=== PATIENT | female | born 1980 | race Caucasian/White ===

== ENCOUNTER → 2016-11-14 | Outpatient (CLI) | payer BC ==
--- NOTE | 2016-11-15 07:51 | MM ---
Reason for exam: screening (asymptomatic). Baseline mammogram. History: Took hormonal contraceptives for 16 years beginning at age 17. Physical Findings: Nurse did not find any significant physical abnormalities on exam. MG Screening Mammo w CAD Bilateral CC and MLO view(s) were taken. There are scattered fibroglandular densities. There is no discrete abnormality. ASSESSMENT: Negative, BI-RAD 1 RECOMMENDATION: Routine screening mammogram of both breasts at age 41.
== END | disposition home or self-care (01) ==
LOC: RADMAMWWP 10:11
PROVIDERS: ATTEND Obstetrics & Gynecology
DX: Z12.31 Encounter for screening mammogram for malignant neoplasm of breast (principal)

== ENCOUNTER → 2017-05-30 | Outpatient (CLI) | payer BC ==
--- NOTE | 2017-05-31 09:31 | US ---
EXAMINATION TYPE: US transvaginal DATE OF EXAM: 05/30/2017 COMPARISON: NONE CLINICAL HISTORY: Left lower quadrant pain R10.32. TECHNIQUE: Transvaginal (TV) Date of LMP: 05/28/2017 EXAM MEASUREMENTS: Uterus: 7.7 x 3.5 x 5.2 cm Endometrial Stripe: 0.45 c 1. Uterus: Anteverted wnl 2. Endometrium: wnl 3. Right Ovary: Obscured by overlying bowel gas 4. Left Ovary: Obscured by overlying bowel gas 5. Bilateral Adnexa: wnl 6. Posterior cul-de-sac: wnl Small Nabothian simple appearing nabothian cyst is an incidentally noted within the cervix. IMPRESSION: 1. Unremarkable endometrium and uterus. 2. Small nabothian cyst within the cervix. 3. Nonvisualization of the ovaries as the aorta obscured by bowel gas.
== END | disposition home or self-care (01) ==
LOC: RADUSMAIN 17:52
PROVIDERS: ATTEND Family Medicine
DX: N88.8 Other specified noninflammatory disorders of cervix uteri (principal); R10.32 Left lower quadrant pain
CPT/HCPCS: 76830

== ENCOUNTER 2018-11-29 14:32 | Observation (INO) | payer BC ==
[2018-11-29] MEDS ORDERED: SODIUM CHLORIDE 0.9% 1,000 ML IV STA (14:54)
--- NOTE | 2018-11-29 15:23 | ED ---
Abdominal Pain HPI - General Chief Complaint: Abdominal Pain Stated Complaint: Abdominal pain Time Seen by Provider: 11/29/18 14:54 Source: patient Mode of arrival: ambulatory Limitations: no limitations - History of Present Illness Initial Comments: 38-year-old female with focal nodular hyperplasia of the liver, eosinophilic esophagitis sanjuanita today for chief complaint of abdominal pain. Patient states that yesterday evening she began experiencing epigastric abdominal pain, she states the pain is since moved to the right lower quadrant. She states it radiates towards the back bilaterally. She states the pain increases with movement, or deep breaths. She denies any chest pain, dyspnea dyspraxia and. She states she has felt nauseous, and experienced dry heaving last night denies any true emesis or hematemesis. Patient states she had diarrhea one time. Denies a melena or hematochezia. She has a fever chills or night sweats. Patient denies any lower pelvic pain, vaginal bleeding, vaginal discharge or pain with sex. She denies stating has had a vasectomy. Pt had previous intraabdominal surgeries including a cholecystectomy, and procedures for embolization of the liver for her focal nodular hyperplasia. Pt denies any flank pain, urgency, frequency, dysuria, hematuria. Remaining ROS (-) , patient denies any numbness or tingling, constipation, headaches or visual changes, or any other complaints. - Related Data Home Medications Medication Instructions Recorded Confirmed Fluticasone Propionate [Flovent 2 puff INHALATION RT-DAILY 11/29/18 11/29/18 Hfa 220 mcg] Multivitamins, Thera [Multivitamin 1 tab PO DAILY 11/29/18 11/29/18 (formulary)] Pantoprazole Sodium [Protonix] 20 mg PO DAILY 11/29/18 11/29/18 busPIRone HCl [Buspar] 10 mg PO BID PRN 11/29/18 11/29/18 Allergies Allergy/AdvReac Type Severity Reaction Status Date / Time venlafaxine HCl Allergy Rapid Verified 11/29/18 15:28 [From Effexor] Heart Rate Review of Systems ROS Statement: Those systems with pertinent positive or pertinent negative responses have been documented in the HPI. ROS Other: All systems not noted in ROS Statement are negative. Past Medical History Past Medical History: No Reported History History of Any Multi-Drug Resistant Organisms: None Reported Past Surgical History: Cholecystectomy Additional Past Surgical History / Comment(s): liver embolism, sinus Past Anesthesia/Blood Transfusion Reactions: Postoperative Nausea & Vomiting ( PONV) Past Psychological History: No Psychological Hx Reported Smoking Status: Never smoker Past Alcohol Use History: None Reported Past Drug Use History: None Reported - Past Family History Father Family Medical History: Neurologic Disorder Additional Family Medical History / Comment(s): Multiple Sclerosis General Exam - General Exam Comments Initial Comments: General: The patient is awake and alert, in no distress, Eye: +3 mm pupils are equal, round and reactive to light, extra-ocular movements are intact. No nystagmus. There is normal conjunctiva bilaterally. No signs of icterus. Ears, nose, mouth and throat: There are moist mucous membranes and no oral lesions. Neck: The neck is supple, there is no tenderness or JVD. Cardiovascular: There is a regular rate and rhythm. No murmur, rub or gallop is appreciated. Respiratory: Lungs are clear to auscultation, respirations are non-labored, breath sounds are equal. No wheezes, stridor, rales, or rhonchi. Gastrointestinal: No noted diaphoresis, jaundice, pallor, protecting postures or squirming. Symmetrical pigmentation of abdomen without signs of inflammation.. Umbilicus mildline, inverted without swelling. No dilated veins. Abdomen contour obese, no noted abdominal distention. No visible masses. No peristalsis, aortic pulsations, or ventral hernia. Bowel sounds audible in all 4 quadrants, unremarkable. No friction rubs or venous hums. No epigastic, hepatic or abdominal bruits. Tenderness to RLQ on deep and light palpation. No lower pelvic pain. (+) McBurneys, (+) Rovsing. (-) Heel jar. Liver edge, not palpable. Spleen edge, right and left kidney not palpable. Superior bladder margin non-tender. No CVA tenderness. Digital rectal exam deferred. Negative karimi turners or cullens sign Musculoskeletal: Normal ROM, no tenderness. Strength 5/5. Sensation intact. Radial pulses equal bilaterally 2+. Neurological: A&O x 3. CN II-XII intact, There are no obvious motor or sensory deficits. Coordination appears grossly intact. Speech is normal. Skin: Skin is warm and dry and no rashes or lesions are noted. Psychiatric: Cooperative, appropriate mood & affect, normal judgment. Limitations: no limitations Course Vital Signs 11/29/18 11/29/18 11/29/18 14:42 16:24 16:38 Temperature 98.8 F 98 F Pulse Rate 91 83 81 Respiratory 18 18 18 Rate Blood Pressure 156/98 160/108 139/73 O2 Sat by Pulse 95 98 98 Oximetry Medical Decision Making - Medical Decision Making Well-appearing 38-year-old female complaining of right lower quadrant pain concerning for appendicitis. CT revealed acute mild appendicitis. This is compatible patient history and physical examination findings. The signs of peritoneal irritation on PE. Surgery was consult is recommended admission for surgery. Patient started on Zosyn, marked nothing by mouth given medications for nausea and pain management. DR Davis accepted admission. Pt transferred to the floor in stable condition after discussing the results of the CT. I discussed the case with attending provider Dr. Jimenez who spoke with admitting providers, agreeable with plan. No further instruction. - Lab Data Result diagrams: 11/29/18 15:16 11/29/18 15:16 Lab Results 11/29/18 11/29/18 11/29/18 Range/Units 15:16 15:16 15:16 WBC 8.5 (3.8-10.6) k/uL RBC 4.92 (3.80-5.40) m/uL Hgb 13.7 (11.4-16.0) gm/dL Hct 40.8 (34.0-46.0) % MCV 82.9 (80.0-100.0) fL MCH 27.8 (25.0-35.0) pg MCHC 33.5 (31.0-37.0) g/dL RDW 14.2 (11.5-15.5) % Plt Count 258 (150-450) k/uL Neutrophils % 68 % Lymphocytes % 23 % Monocytes % 5 % Eosinophils % 3 % Basophils % 1 % Neutrophils # 5.8 (1.3-7.7) k/uL Lymphocytes # 2.0 (1.0-4.8) k/uL Monocytes # 0.4 (0-1.0) k/uL Eosinophils # 0.2 (0-0.7) k/uL Basophils # 0.0 (0-0.2) k/uL Sodium 141 (137-145) mmol/L Potassium 4.2 (3.5-5.1) mmol/L Chloride 105 (98-107) mmol/L Carbon Dioxide 25 (22-30) mmol/L Anion Gap 11 mmol/L BUN 8 (7-17) mg/dL Creatinine 0.70 (0.52-1.04) mg/dL Est GFR (CKD-EPI)AfAm >90 (>60 ml/min/1.73 sqM) Est GFR (CKD-EPI)NonAf >90 (>60 ml/min/1.73 sqM) Glucose 92 (74-99) mg/dL Calcium 9.7 (8.4-10.2) mg/dL Total Bilirubin 0.9 (0.2-1.3) mg/dL AST 31 (14-36) U/L ALT 46 (9-52) U/L Alkaline Phosphatase 67 (38-126) U/L Total Protein 7.7 (6.3-8.2) g/dL Albumin 4.7 (3.5-5.0) g/dL Amylase 46 (30-110) U/L Lipase 69 (23-300) U/L Urine Color Urine Appearance (Clear) Urine pH (5.0-8.0) Ur Specific Premier (1.001-1.035) Urine Protein (Negative) Urine Glucose (UA) (Negative) Urine Ketones (Negative) Urine Blood (Negative) Urine Nitrite (Negative) Urine Bilirubin (Negative) Urine Urobilinogen (<2.0) mg/dL Ur Leukocyte Esterase (Negative) Urine HCG, Qual Not Detected (Not Detectd) 11/29/18 Range/Units 15:16 WBC (3.8-10.6) k/uL RBC (3.80-5.40) m/uL Hgb (11.4-16.0) gm/dL Hct (34.0-46.0) % MCV (80.0-100.0) fL MCH (25.0-35.0) pg MCHC (31.0-37.0) g/dL RDW (11.5-15.5) % Plt Count (150-450) k/uL Neutrophils % % Lymphocytes % % Monocytes % % Eosinophils % % Basophils % % Neutrophils # (1.3-7.7) k/uL Lymphocytes # (1.0-4.8) k/uL Monocytes # (0-1.0) k/uL Eosinophils # (0-0.7) k/uL Basophils # (0-0.2) k/uL Sodium (137-145) mmol/L Potassium (3.5-5.1) mmol/L Chloride (98-107) mmol/L Carbon Dioxide (22-30) mmol/L Anion Gap mmol/L BUN (7-17) mg/dL Creatinine (0.52-1.04) mg/dL Est GFR (CKD-EPI)AfAm (>60 ml/min/1.73 sqM) Est GFR (CKD-EPI)NonAf (>60 ml/min/1.73 sqM) Glucose (74-99) mg/dL Calcium (8.4-10.2) mg/dL Total Bilirubin (0.2-1.3) mg/dL AST (14-36) U/L ALT (9-52) U/L Alkaline Phosphatase (38-126) U/L Total Protein (6.3-8.2) g/dL Albumin (3.5-5.0) g/dL Amylase (30-110) U/L Lipase (23-300) U/L Urine Color Yellow Urine Appearance Clear (Clear) Urine pH 5.5 (5.0-8.0) Ur Specific Premier 1.016 (1.001-1.035) Urine Protein Negative (Negative) Urine Glucose (UA) Negative (Negative) Urine Ketones 1+ H (Negative) Urine Blood Negative (Negative) Urine Nitrite Negative (Negative) Urine Bilirubin Negative (Negative) Urine Urobilinogen <2.0 (<2.0) mg/dL Ur Leukocyte Esterase Negative (Negative) Urine HCG, Qual (Not Detectd) Disposition Clinical Impression: Acute appendicitis Disposition: [facility]MITT[facility] Condition: Stable Is patient prescribed a controlled substance at d/c from ED?: No Time of Disposition: 16:26 Decision to Admit Reason: Admit from EC Decision Date: 11/29/18 Decision Time: 16:26
[2018-11-29 15:30] LABS: Appearance,Urine Clear (Clear); Bilirubin,Urine Negative (Negative); Blood,Urine Negative (Negative); Color,Urine Yellow; Glucose,Urine (UA) Negative (Negative); Ketones,Urine 1+ (Negative); Leukocyte Esterase,Urine Negative (Negative); Nitrite,Urine Negative (Negative); PH, Urine 5.5 (5.0-8.0); Protein,Urine Negative (Negative); Specific Gravity,Urine 1.016 (1.001-1.035); Urobilinogen,Urine <2.0 mg/dL (<2.0)
[2018-11-29 15:33] LABS: Basophils % (A) 1 %; Eosinophils # (A) 0.2 k/uL (0-0.7); Eosinophils % (A) 3 %; HCT 40.8 % (34.0-46.0); HGB 13.7 gm/dL (11.4-16.0); Lymphocytes % (A) 23 %; MCH 27.8 pg (25.0-35.0); MCHC 33.5 g/dL (31.0-37.0); MCV 82.9 fL (80.0-100.0); Monocytes # (A) 0.4 k/uL (0-1.0); Monocytes % (A) 5 %; Neutrophils # (A) 5.8 k/uL (1.3-7.7); Neutrophils % (A) 68 %; Platelet Count 258 k/uL (150-450); RBC 4.92 m/uL (3.80-5.40); RDW 14.2 % (11.5-15.5); WBC 8.5 k/uL (3.8-10.6)
[2018-11-29 15:43] LABS: ALT 46 U/L (9-52); AST 31 U/L (14-36); Albumin 4.7 g/dL (3.5-5.0); Alkaline Phosphatase 67 U/L (38-126); Amylase 46 U/L (30-110); Anion Gap 11 mmol/L; Blood Urea Nitrogen 8 mg/dL (7-17); Calcium 9.7 mg/dL (8.4-10.2); Carbon Dioxide 25 mmol/L (22-30); Chloride 105 mmol/L (98-107); Glucose 92 mg/dL (74-99); Lipase 69 U/L (23-300); Potassium 4.2 mmol/L (3.5-5.1); Sodium 141 mmol/L (137-145); Total Bilirubin 0.9 mg/dL (0.2-1.3); Total Protein 7.7 g/dL (6.3-8.2)
--- NOTE | 2018-11-29 16:16 | CT ---
EXAMINATION TYPE: CT abdomen pelvis w con DATE OF EXAM: 11/29/2018 COMPARISON: 02/08/2016 HISTORY: Right lower quadrant pain with nausea and vomiting. CT DLP: 1068.2 mGycm CONTRAST: CT scan of the abdomen and pelvis is performed without Oral Contrast and with IV Contrast, patient in jected with 100 mL of Isovue 300. FINDINGS: LUNG BASES-: No visible nodule. No infiltrate. LIVER/GB: Cholecystectomy changes noted. Again noted is hypoattenuating lesion within the posterior segment right hepatic lobe medially currently measuring 5.2 x 2.5 cm versus prior measurement of juan roximately 7.8 x 4.5 cm. No new lesions are identified. There is evidence of underlying hepatic steat osis. Biliary tree is of normal caliber. PANCREAS: No inflammation. No distinct mass. SPLEEN: No splenic enlargement. No lesion seen. ADRENALS: No nodule. No thickening. KIDNEYS/BLADDER: No hydronephrosis. No nephrolithiasis. No distinct renal mass. Urinary bladder g rossly unremarkable. BOWEL: There is thickening of the appendix measuring 9.2 mm with mild surrounding periappendiceal inf lammatory change. The findings are felt to reflect mild early acute appendicitis. No evidence of perf oration or abscess. No free air identified. Normal bowel caliber. No inflammation. GENITAL ORGANS: No gross abnormality. LYMPH NODES: No greater than 1cm abdominal or pelvic lymph nodes are appreciated. AORTA: No significant abnormality. OSSEOUS STRUCTURES: No significant abnormality is seen. OTHER: No significant additional abnormality is seen. IMPRESSION: 1. Mild early acute appendicitis. 2. Hepatic lesion which is nonspecific is somewhat smaller in size versus prior examination. Comment: ER staff notified of the aforementioned findings via telephone.
[2018-11-29] MEDS ORDERED: PIPERACILLIN-TAZOBACTAM 3.375 GM in SODIUM CHLORIDE 0.9% 100 ML IVPB STA (16:23)
[2018-11-29] MEDS ORDERED: NALOXONE 0.4 MG/ML 1 ML VIAL IV PRN (16:24)
[2018-11-29] MEDS: ONDANSETRON 4 MG/2 ML VIAL IVP SCH ×2 (17:00→17:27)
[2018-11-29] MEDS: SODIUM CHLORIDE 0.9% 1,000 ML IV SCH ×2 (17:01→21:07)
[2018-11-29] MEDS ORDERED: LACTATED RINGERS 1,000 ML IV ONE (17:05)
--- NOTE | 2018-11-29 17:15 | P.GSHP ---
History of Present Illness H&P Date: 11/29/18 38-year-old female presented to the emergency department with 1 day of abdominal pain. She states that the pain began in her epigastrium and then traveled down to umbilicus and has now settled in her right lower quadrant. She complained of nausea as well. She also complained of decreased appetite. In the emergency department, workup was completed with CT of the abdomen and pelvis. CT of the abdomen is pelvis does show early appendicitis with some inflammatory changes around the appendix. The patient has no additional complaints at this time. She states that her only previous abdominal surgery has been a cholecystectomy. 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 - Review of Systems All systems: negative Past Medical History Past Medical History: No Reported History Additional Past Medical History / Comment(s): FNH History of Any Multi-Drug Resistant Organisms: None Reported Past Surgical History: Cholecystectomy Additional Past Surgical History / Comment(s): liver embolism, sinus Past Anesthesia/Blood Transfusion Reactions: Postoperative Nausea & Vomiting ( PONV) Past Psychological History: No Psychological Hx Reported Smoking Status: Never smoker Past Alcohol Use History: None Reported Past Drug Use History: None Reported - Past Family History Father Family Medical History: Neurologic Disorder Additional Family Medical History / Comment(s): Multiple Sclerosis Medications and Allergies Home Medications Medication Instructions Recorded Confirmed Type Fluticasone Propionate [Flovent 2 puff INHALATION RT-DAILY 11/29/18 11/29/18 History Hfa 220 mcg] Multivitamins, Thera [Multivitamin 1 tab PO DAILY 11/29/18 11/29/18 History (formulary)] Pantoprazole Sodium [Protonix] 20 mg PO DAILY 11/29/18 11/29/18 History busPIRone HCl [Buspar] 10 mg PO BID PRN 11/29/18 11/29/18 History Allergies Allergy/AdvReac Type Severity Reaction Status Date / Time venlafaxine HCl Allergy Rapid Verified 11/29/18 15:28 [From Effexor] Heart Rate Surgical - Exam Osteopathic Statement: *. No significant issues noted on an osteopathic structural exam other than those noted in the History and Physical/Consult. Vital Signs Temp Pulse Resp BP Pulse Ox 98.8 F 91 18 156/98 95 11/29/18 14:42 11/29/18 14:42 11/29/18 14:42 11/29/18 14:42 11/29/18 14:42 - General well nourished, no distress - Eyes PERRL - ENT normal mucosa, no hearing loss - Neck trachea midline - Respiratory normal respiratory effort - Abdomen Soft, tender to palpation in right lower quadrant, nondistended, no rebound, no guarding - Neurologic normal sensation - Psychiatric oriented to time, oriented to person, oriented to place Results - Labs 11/29/18 15:16 11/29/18 15:16 Abnormal Lab Results - Last 24 Hours (Table) 11/29/18 Range/Units 15:16 Urine Ketones 1+ H (Negative) Diabetes panel 11/29/18 Range/Units 15:16 Sodium 141 (137-145) mmol/L Potassium 4.2 (3.5-5.1) mmol/L Chloride 105 (98-107) mmol/L Carbon Dioxide 25 (22-30) mmol/L BUN 8 (7-17) mg/dL Creatinine 0.70 (0.52-1.04) mg/dL Glucose 92 (74-99) mg/dL Calcium 9.7 (8.4-10.2) mg/dL AST 31 (14-36) U/L ALT 46 (9-52) U/L Alkaline Phosphatase 67 (38-126) U/L Total Protein 7.7 (6.3-8.2) g/dL Albumin 4.7 (3.5-5.0) g/dL Calcium panel 11/29/18 Range/Units 15:16 Calcium 9.7 (8.4-10.2) mg/dL Albumin 4.7 (3.5-5.0) g/dL Pituitary panel 11/29/18 Range/Units 15:16 Sodium 141 (137-145) mmol/L Potassium 4.2 (3.5-5.1) mmol/L Chloride 105 (98-107) mmol/L Carbon Dioxide 25 (22-30) mmol/L BUN 8 (7-17) mg/dL Creatinine 0.70 (0.52-1.04) mg/dL Glucose 92 (74-99) mg/dL Calcium 9.7 (8.4-10.2) mg/dL Adrenal panel 11/29/18 Range/Units 15:16 Sodium 141 (137-145) mmol/L Potassium 4.2 (3.5-5.1) mmol/L Chloride 105 (98-107) mmol/L Carbon Dioxide 25 (22-30) mmol/L BUN 8 (7-17) mg/dL Creatinine 0.70 (0.52-1.04) mg/dL Glucose 92 (74-99) mg/dL Calcium 9.7 (8.4-10.2) mg/dL Total Bilirubin 0.9 (0.2-1.3) mg/dL AST 31 (14-36) U/L ALT 46 (9-52) U/L Alkaline Phosphatase 67 (38-126) U/L Total Protein 7.7 (6.3-8.2) g/dL Albumin 4.7 (3.5-5.0) g/dL - Imaging CT scan - abdomen: report reviewed, image reviewed (CT of the abdomen pelvis was reviewed. Inflammatory changes around appendix are noted along with thickening of the appendix.) CT scan - pelvis: report reviewed, image reviewed Assessment and Plan (1) Acute appendicitis Narrative/Plan: 38-year-old female with acute appendicitis - Keep patient nothing by mouth - Begin IV antibiotics - Prepare for operating room for laparoscopic appendectomy Current Visit: Yes Status: Acute Code(s): K35.80 - UNSPECIFIED ACUTE APPENDICITIS SNOMED Code(s): 49621257
[2018-11-29] MEDS ORDERED: FAMOTIDINE 20 MG/2 ML VIAL IVP ONE (17:27)
[2018-11-29] MEDS ORDERED: DEXAMETHASONE SOD PHOS (MDV) 100 MG/10 ML VIAL IVP ONE (17:27)
[2018-11-29] MEDS: HEPARIN SODIUM,PORCINE 5,000 UNIT/ML 1 ML VIAL SQ SCH (17:27)
[2018-11-29] MEDS ORDERED: METOCLOPRAMIDE 5 MG/ML 2 ML VIAL IVP ONE (17:28)
[2018-11-29] MEDS: PIPERACILLIN-TAZOBACTAM 3.375 GM in SODIUM CHLORIDE 0.9% 100 ML IVPB SCH ×2 (17:29→23:40)
[2018-11-29] MEDS ORDERED: BUPIVACAIN-EPI 0.5%-1:200,000 30 ML VIAL SQ ONE ×2 (17:30→17:53)
--- NOTE | 2018-11-29 18:26 | P.OP ---
Date of Procedure: 11/29/18 Preoperative Diagnosis: Acute appendicitis Postoperative Diagnosis: Acute appendicitis Procedure(s) Performed: Laparoscopic appendectomy Anesthesia: SUDARSHAN Surgeon: Deric Davis Pathology: other (Appendix) Condition: stable Disposition: floor Indications for Procedure: 38-year-old female presented to the emergency department with right lower quadrant pain. On workup, she was found to have appendicitis based on CT finding and clinical findings. Secondary to this, plan is for laparoscopic appendectomy. The patient was explained the risks, benefits and alternatives to the procedure and did provide consent prior to attending the operating suite. Operative Findings: Inflamed appendix that was noted to be thickened. Turbid fluid in the pelvis Description of Procedure: The patient was brought into the operating suite and placed in supine position on the operating table. Sedation was provided by anesthesia and the patient underwent endotracheal intubation. The patient was then prepped and draped in regular sterile fashion. A super umbilical incision was made dissection was carried to the fascia the fascia was grasped and incised. The abdomen was then entered and a 12 mm trocar was placed. Pneumoperitoneum was then achieved. 2 additional ports were placed. 5 mm ports were placed in the suprapubic and left lower quadrant. The patient was then positioned appropriately. The small bowel was medialized and the appendix became visible. The appendix was grasped and the base of the appendix was clearly visualized. A window was then created between the appendix and the mesoappendix at the base of the appendix. A stapling device was then fired across the base of the appendix. LigaSure device was then used to dissect the appendix from the mesoappendix attachment. The appendix was then placed in an Endo Catch bag and removed from the abdomen. The turbid fluid that was noted within the pelvis was suctioned. The staple line was noted to be hemostatic. The 12 mm trocar was removed. The fascial incision site was then closed with multiple 0 Vicryl sutures using a Kev- Ines device under direct visualization. At this point pneumoperitoneum was released and additional ports removed from the abdomen. All skin incisions were closed with 4-0 Vicryl subcuticular suture. The patient was awakened in the operating suite and taken to postanesthesia care unit in stable condition.
[2018-11-29] MEDS ORDERED: busPIRone HCl 10 MG TAB PO PRN (18:27)
[2018-11-29] MEDS: MORPHINE SULFATE 4MG/4ML SYRG IVP ONE ×4 (18:54→19:16)
[2018-11-29] MEDS ORDERED: SODIUM CHLORIDE 0.9% 1,000 ML IV ONE (19:00)
[2018-11-29] MEDS ORDERED: fentaNYL (PF) 50 MCG/ML 2 ML AMP IV ONE (19:31)
[2018-11-29] MEDS ORDERED: ONDANSETRON 4 MG/2 ML VIAL IVP ONE (19:33)
[2018-11-30] MEDS: HEPARIN SODIUM,PORCINE 5,000 UNIT/ML 1 ML VIAL SQ SCH ×2 (00:05→07:29)
[2018-11-30] MEDS: MORPHINE SULFATE 4 MG/ML SYRINGE IVP PRN ×2 (00:06→04:34)
[2018-11-30] MEDS ORDERED: HYDROcodone/APAP 5-325MG 1 EACH TAB PO PRN (07:01)
[2018-11-30] MEDS ORDERED: MORPHINE SULFATE 4 MG/ML SYRINGE IVP PRN (07:02)
[2018-11-30] MEDS: ONDANSETRON 4 MG/2 ML VIAL IVP SCH ×2 (07:04→07:29)
[2018-11-30] MEDS ORDERED: PANTOPRAZOLE 40 MG TABLET PO SCH (07:30)
[2018-11-30] MEDS: SODIUM CHLORIDE 0.9% 1,000 ML IV SCH (07:30)
[2018-11-30] MEDS: KETOROLAC 30 MG/ML 1 ML VIAL IVP SCH ×2 (07:38→13:06)
[2018-11-30 07:41] LABS: Basophils % (A) 0 %; Eosinophils % (A) 0 %; HCT 37.9 % (34.0-46.0); HGB 12.4 gm/dL (11.4-16.0); Lymphocytes # (A) 0.8 k/uL (1.0-4.8); Lymphocytes % (A) 10 %; MCHC 32.7 g/dL (31.0-37.0); MCV 85.6 fL (80.0-100.0); Monocytes # (A) 0.2 k/uL (0-1.0); Monocytes % (A) 2 %; Neutrophils % (A) 87 %; Platelet Count 235 k/uL (150-450); RBC 4.43 m/uL (3.80-5.40); RDW 14.3 % (11.5-15.5)
[2018-11-30 07:51] LABS: Anion Gap 7 mmol/L; Blood Urea Nitrogen 7 mg/dL (7-17); Calcium 8.4 mg/dL (8.4-10.2); Carbon Dioxide 21 mmol/L (22-30); Chloride 109 mmol/L (98-107); Glucose 117 mg/dL (74-99); Potassium 4.7 mmol/L (3.5-5.1); Sodium 137 mmol/L (137-145)
[2018-11-30] MEDS ORDERED: FLUTICASONE 220 MCG INHALER INHALATION SCH (08:00)
[2018-11-30 08:56] VITALS: RESP 20
--- NOTE | 2018-11-30 12:21 | P.DS ---
Providers Date of admission: 11/29/18 16:50 Attending physician: Deric Davis DO Primary care physician: Marianne Mendoza - Discharge Diagnosis(es) (1) Acute appendicitis Current Visit: Yes Status: Acute Hospital Course: The patient initially presented secondary to acute appendicitis. She was taken to the operating room and a laparoscopic appendectomy was performed. Postoperatively, the patient was sent to the medical surgical floor. Her pain levels continued to improve. She became more alert once anesthesia had dissipated. She was advanced in diet and laboratory values were evaluated. There is no evidence of leukocytosis. She is tolerating diet. Her abdominal pain is well-controlled. At this point, she is surgically stable for discharge. Procedures: Laparoscopic appendectomy Patient Condition at Discharge: Stable Plan - Discharge Summary New Discharge Prescriptions: New HYDROcodone/APAP 5-325MG [[place] 5-325] 1 each PO Q6HR PRN #15 tab PRN Reason: Pain Continue busPIRone HCl [Buspar] 10 mg PO BID PRN PRN Reason: Anxiety Pantoprazole Sodium [Protonix] 20 mg PO DAILY Multivitamins, Thera [Multivitamin (formulary)] 1 tab PO DAILY Fluticasone Propionate [Flovent Hfa 220 mcg] 2 puff INHALATION RT-DAILY Discharge Medication List Fluticasone Propionate [Flovent Hfa 220 mcg] 2 puff INHALATION RT-DAILY [History] Multivitamins, Thera [Multivitamin (formulary)] 1 tab PO DAILY 11/29/18 [History ] Pantoprazole Sodium [Protonix] 20 mg PO DAILY 11/29/18 [History] busPIRone HCl [Buspar] 10 mg PO BID PRN 11/29/18 [History] HYDROcodone/APAP 5-325MG [[place] 5-325] 1 each PO Q6HR PRN #15 tab 11/30/18 [Rx] Follow up Appointment(s)/Referral(s): Marianne Mendoza DO [Primary Care Provider] - 1-2 days Deric Davis DO [Doctor of Osteopathic Medicine] - 10 Days Activity/Diet/Wound Care/Special Instructions: Okay to shower Okay to continue to increase diet, stay on soft and bland foods for 3-5 days If taking narcotic pain medication, no driving and take stool softeners No lifting greater than 5-7 pounds for 2 weeks Discharge Disposition: HOME SELF-CARE
[2018-11-30 12:26] VITALS: BP 118/71; PULSE 74; TEMP 97.8
== END 2018-11-30 13:40 | disposition home or self-care (01) ==
LOC: EC 14:32 → 6PED 16:50
PROVIDERS: ADMIT Surgery; ATTEND Surgery
DX: K35.33 Acute appendicitis with perforation, localized peritonitis, and gangrene, with abscess (principal); J45.909 Unspecified asthma, uncomplicated; F41.9 Anxiety disorder, unspecified; Z90.49 Acquired absence of other specified parts of digestive tract; Z82.0 Family history of epilepsy and other diseases of the nervous system; Z79.899 Other long term (current) drug therapy; Z88.8 Allergy status to other drugs, medicaments and biological substances
CPT/HCPCS: 44970; 99285; 36415; 81025 ×2; 88304; 80053; 80048; 82150; 83690; 85025 ×2; 81003; 74177; G0378 ×2; J2543; J2270 ×2; J1644 ×2; J2765; J2405 ×2; J3010; J1885; J1100; Q9967

== ENCOUNTER 2020-04-04 06:20 | Emergency (ER) | payer BC ==
[2020-04-04 06:32] VITALS: RESP 18
[2020-04-04] MEDS ORDERED: SODIUM CHLORIDE 0.9% 1,000 ML IV STA (06:46)
[2020-04-04] MEDS ORDERED: KETOROLAC 30 MG/ML 1 ML VIAL IVP STA (06:46)
[2020-04-04] MEDS ORDERED: ONDANSETRON 4 MG/2 ML VIAL IVP STA (06:46)
--- NOTE | 2020-04-04 06:51 | ED ---
Abdominal Pain HPI - General Source: patient, RN notes reviewed, old records reviewed Mode of arrival: ambulatory Limitations: no limitations <Chiquita Arana - Last Filed: 04/04/20 09:03> <Deloris Echavarria - Last Filed: 04/05/20 01:58> - General Chief Complaint: Abdominal Pain Stated Complaint: Abd pain, Vomiting Time Seen by Provider: 04/04/20 06:33 - History of Present Illness Initial Comments: Patient is a 39-year-old female who presents emergency department today with multiple complaints. Patient states that she has had one week of nausea, fatigue and complaining sinus congestion and sore throat. She also complains of lower abdominal pain with radiation towards bilateral flank area. Denies polyuria or dysuria. She reports that she was seen by telemetry help document was given prescription for amoxicillin and Solu-Medrol earlier this week. She denies any changes in stools. She does complain of nausea and vomiting. She recently traveled from [place]. Surgical history includes cholecyste ctomy and appendectomy. (Chiquita Arana) - Related Data Home Medications Medication Instructions Recorded Confirmed Fluticasone Propionate [Flovent 2 puff INHALATION RT-DAILY 11/29/18 11/29/18 Hfa 220 mcg] Multivitamins, Thera [Multivitamin 1 tab PO DAILY 11/29/18 11/29/18 (formulary)] Pantoprazole Sodium [Protonix] 20 mg PO DAILY 11/29/18 11/29/18 busPIRone HCl [Buspar] 10 mg PO BID PRN 11/29/18 11/29/18 Previous Rx's Medication Instructions Recorded HYDROcodone/APAP 5-325MG [Wilson 1 each PO Q6HR PRN #15 tab 11/30/18 5-325] Azithromycin [Zithromax Z-pack] 250 mg PO DIRECTED #6 tab 04/04/20 Metoclopramide [Reglan] 10 mg PO ACHS #12 tab 04/04/20 Allergies Allergy/AdvReac Type Severity Reaction Status Date / Time venlafaxine HCl Allergy Rapid Verified 04/04/20 06:32 [From Effexor] Heart Rate Review of Systems ROS Other: All systems not noted in ROS Statement are negative. <Chiquita Arana - Last Filed: 06/27/20 09:03> ROS Other: All systems not noted in ROS Statement are negative. <Deloris Echavarria - Last Filed: 04/05/20 01:58> ROS Statement: Those systems with pertinent positive or pertinent negative responses have been documented in the HPI. Past Medical History Past Medical History: No Reported History Additional Past Medical History / Comment(s): FNH, eosinophilic esophagitis History of Any Multi-Drug Resistant Organisms: None Reported Past Surgical History: Appendectomy, Cholecystectomy Additional Past Surgical History / Comment(s): liver embolism, sinus Past Anesthesia/Blood Transfusion Reactions: Postoperative Nausea & Vomiting (PONV) Past Psychological History: No Psychological Hx Reported Smoking Status: Never smoker Past Alcohol Use History: None Reported Past Drug Use History: None Reported - Past Family History Father Family Medical History: Neurologic Disorder Additional Family Medical History / Comment(s): Multiple Sclerosis, alcoholism <Chiquita Arana - Last Filed: 04/04/20 09:03> General Exam Limitations: no limitations General appearance: alert, in no apparent distress Head exam: Present: atraumatic, normocephalic, normal inspection Eye exam: Present: normal appearance, PERRL, EOMI. Absent: scleral icterus, conjunctival injection, periorbital swelling ENT exam: Present: normal exam, mucous membranes moist Neck exam: Present: normal inspection. Absent: tenderness, meningismus, lymphadenopathy Respiratory exam: Present: normal lung sounds bilaterally. Absent: respiratory distress, wheezes, rales, rhonchi, stridor Cardiovascular Exam: Present: regular rate, normal rhythm, normal heart sounds. Absent: systolic murmur, diastolic murmur, rubs, gallop, clicks GI/Abdominal exam: Present: soft, tenderness (Lower abdominal tenderness), normal bowel sounds. Absent: distended, guarding, rebound, rigid Back exam: Present: normal inspection Neurological exam: Present: alert, oriented X3, CN II-XII intact Psychiatric exam: Present: normal affect, normal mood Skin exam: Present: warm, dry, intact, normal color. Absent: rash <Chiquita Arana - Last Filed: 04/04/20 09:03> - General Exam Comments Initial Comments: 39-year-old female. Alert and appeared in no distress. (Chiquita Arana) Course Vital Signs 04/04/20 04/04/20 06:26 09:26 Temperature 97.4 F L 98.2 F Pulse Rate 71 69 Respiratory 18 18 Rate Blood Pressure 127/85 116/72 O2 Sat by Pulse 99 98 Oximetry Medical Decision Making - Lab Data Result diagrams: 04/04/20 06:55 04/04/20 06:55 - Radiology Data Radiology results: report reviewed <Chiquita Arana - Last Filed: 04/04/20 09:03> - Lab Data Result diagrams: 04/04/20 06:55 04/04/20 06:55 <Deloris Echavarria Meghan - Last Filed: 04/05/20 01:58> - Medical Decision Making Patient is a 39-year-old female presents or urgency department today with multiple complaints clearing sinus congestion abdominal pain and vomiting as well as some lower back pain and lower abdominal pain. Patient had recently traveled from [place] and is having symptoms for the past week. She's been taking amoxicillin for sinus infection for the past few days as well as Solu-Medrol. At this time Patient is given IV fluids labwork obtained. CBC was unremarkable. She does have mildly elevated transaminases. Patient states urinalysis did show some slight hematuria and concern for lower abdominal pain with radiation towards the back computed tomography scan was completed without contrast to rule out kidney stone. There is evidence no evidence of stone or hydronephrosis. On my review of the CT there is questionable possible 2 mm stone at the right UVJ. I discussed that she has no clinical picture of stone at this time but continue to monitor this with her primary care doctor. Computed tomography scan shows evidence of colitis. There is also evidence of patchy developing infiltrate on the lung bases. I informed Patient of these results. I did discuss this could be concern for possible Covid-19 infection. I discussed this she is not requiring supplemental oxygen and is clinically appearing well vital signs are stable. I did discuss that we will send a Covid swab at this time and have her further testing. I discussed the patient's self isolating quarantine until the results are negative. In the meantime we will start the Patient on azithromycin to cover for atypical bacteria causing the fascial infiltrate on the chest x-ray and advised prompt follow-up with her primary care physician. Given a note for work. STrict return parameters di scussed. (Chiquita Arana) I was available for consultation in the emergency department. The history and physical exam were done by the midlevel provider. I was consulted for this patients care. I reviewed the case with the midlevel provider and based on their presentation of the patient, I agree with the assessment, medical decision making and plan of care as documented. Chart was dictated using [employer] dictation software. Attempts were made to correct any dictation errors however some typographical errors may persist. Patient was seen during a national state of emergency due to the Covid-19 pandemic. (Deloris Echavarria) - Lab Data Lab Results 04/04/20 04/04/20 04/04/20 Range/Units 06:55 06:55 06:55 WBC 4.0 (3.8-10.6) k/uL RBC 5.29 (3.80-5.40) m/uL Hgb 14.0 (11.4-16.0) gm/dL Hct 42.4 (34.0-46.0) % MCV 80.1 (80.0-100.0) fL MCH 26.4 (25.0-35.0) pg MCHC 33.0 (31.0-37.0) g/dL RDW 14.4 (11.5-15.5) % Plt Count 170 (150-450) k/uL Neutrophils % 52 % Lymphocytes % 39 % Monocytes % 7 % Eosinophils % 1 % Basophils % 1 % Neutrophils # 2.1 (1.3-7.7) k/uL Lymphocytes # 1.6 (1.0-4.8) k/uL Monocytes # 0.3 (0-1.0) k/uL Eosinophils # 0.0 (0-0.7) k/uL Basophils # 0.0 (0-0.2) k/uL Sodium 139 (137-145) mmol/L Potassium 3.5 (3.5-5.1) mmol/L Chloride 105 (98-107) mmol/L Carbon Dioxide 24 (22-30) mmol/L Anion Gap 10 mmol/L BUN 13 (7-17) mg/dL Creatinine 0.65 (0.52-1.04) mg/dL Est GFR (CKD-EPI)AfAm >90 (>60 ml/min/1.73 sqM) Est GFR (CKD-EPI)NonAf >90 (>60 ml/min/1.73 sqM) Glucose 128 H (74-99) mg/dL Calcium 9.1 (8.4-10.2) mg/dL Total Bilirubin 0.3 (0.2-1.3) mg/dL AST 40 H (14-36) U/L ALT 43 H (4-34) U/L Alkaline Phosphatase 78 (38-126) U/L Total Protein 6.8 (6.3-8.2) g/dL Albumin 4.0 (3.5-5.0) g/dL Amylase 62 (30-110) U/L Lipase 76 (23-300) U/L Urine Color Yellow Urine Appearance Cloudy H (Clear) Urine pH 5.5 (5.0-8.0) Ur Specific [place] 1.026 (1.001-1.035) Urine Protein Trace H (Negative) Urine Glucose (UA) Negative (Negative) Urine Ketones Negative (Negative) Urine Blood Moderate H (Negative) Urine Nitrite Negative (Negative) Urine Bilirubin Negative (Negative) Urine Urobilinogen <2.0 (<2.0) mg/dL Ur Leukocyte Esterase Negative (Negative) Urine RBC 22 H (0-5) /hpf Urine WBC 9 H (0-5) /hpf Ur Squamous Epith Cells 5 H (0-4) /hpf Hyaline Casts 1 (0-2) /lpf Urine Mucus Moderate H (None) /hpf Urine HCG, Qual (Not Detectd) Coronavirus (PCR) (Not Detected) Heterophile Antibody (Negative) Group A Strep Rapid (Negative) 04/04/20 04/04/20 04/04/20 Range/Units 06:55 06:55 06:55 WBC (3.8-10.6) k/uL RBC (3.80-5.40) m/uL Hgb (11.4-16.0) gm/dL Hct (34.0-46.0) % MCV (80.0-100.0) fL MCH (25.0-35.0) pg MCHC (31.0-37.0) g/dL RDW (11.5-15.5) % Plt Count (150-450) k/uL Neutrophils % % Lymphocytes % % Monocytes % % Eosinophils % % Basophils % % Neutrophils # (1.3-7.7) k/uL Lymphocytes # (1.0-4.8) k/uL Monocytes # (0-1.0) k/uL Eosinophils # (0-0.7) k/uL Basophils # (0-0.2) k/uL Sodium (137-145) mmol/L Potassium (3.5-5.1) mmol/L Chloride (98-107) mmol/L Carbon Dioxide (22-30) mmol/L Anion Gap mmol/L BUN (7-17) mg/dL Creatinine (0.52-1.04) mg/dL Est GFR (CKD-EPI)AfAm (>60 ml/min/1.73 sqM) Est GFR (CKD-EPI)NonAf (>60 ml/min/1.73 sqM) Glucose (74-99) mg/dL Calcium (8.4-10.2) mg/dL Total Bilirubin (0.2-1.3) mg/dL AST (14-36) U/L ALT (4-34) U/L Alkaline Phosphatase (38-126) U/L Total Protein (6.3-8.2) g/dL Albumin (3.5-5.0) g/dL Amylase (30-110) U/L Lipase (23-300) U/L Urine Color Urine Appearance (Clear) Urine pH (5.0-8.0) Ur Specific [place] (1.001-1.035) Urine Protein (Negative) Urine Glucose (UA) (Negative) Urine Ketones (Negative) Urine Blood (Negative) Urine Nitrite (Negative) Urine Bilirubin (Negative) Urine Urobilinogen (<2.0) mg/dL Ur Leukocyte Esterase (Negative) Urine RBC (0-5) /hpf Urine WBC (0-5) /hpf Ur Squamous Epith Cells (0-4) /hpf Hyaline Casts (0-2) /lpf Urine Mucus (None) /hpf Urine HCG, Qual Not Detected (Not Detectd) Coronavirus (PCR) (Not Detected) Heterophile Antibody Negative (Negative) Group A Strep Rapid Negative (Negative) 04/04/20 Range/Units 06:55 WBC (3.8-10.6) k/uL RBC (3.80-5.40) m/uL Hgb (11.4-16.0) gm/dL Hct (34.0-46.0) % MCV (80.0-100.0) fL MCH (25.0-35.0) pg MCHC (31.0-37.0) g/dL RDW (11.5-15.5) % Plt Count (150-450) k/uL Neutrophils % % Lymphocytes % % Monocytes % % Eosinophils % % Basophils % % Neutrophils # (1.3-7.7) k/uL Lymphocytes # (1.0-4.8) k/uL Monocytes # (0-1.0) k/uL Eosinophils # (0-0.7) k/uL Basophils # (0-0.2) k/uL Sodium (137-145) mmol/L Potassium (3.5-5.1) mmol/L Chloride (98-107) mmol/L Carbon Dioxide (22-30) mmol/L Anion Gap mmol/L BUN (7-17) mg/dL Creatinine (0.52-1.04) mg/dL Est GFR (CKD-EPI)AfAm (>60 ml/min/1.73 sqM) Est GFR (CKD-EPI)NonAf (>60 ml/min/1.73 sqM) Glucose (74-99) mg/dL Calcium (8.4-10.2) mg/dL Total Bilirubin (0.2-1.3) mg/dL AST (14-36) U/L ALT (4-34) U/L Alkaline Phosphatase (38-126) U/L Total Protein (6.3-8.2) g/dL Albumin (3.5-5.0) g/dL Amylase (30-110) U/L Lipase (23-300) U/L Urine Color Urine Appearance (Clear) Urine pH (5.0-8.0) Ur Specific [place] (1.001-1.035) Urine Protein (Negative) Urine Glucose (UA) (Negative) Urine Ketones (Negative) Urine Blood (Negative) Urine Nitrite (Negative) Urine Bilirubin (Negative) Urine Urobilinogen (<2.0) mg/dL Ur Leukocyte Esterase (Negative) Urine RBC (0-5) /hpf Urine WBC (0-5) /hpf Ur Squamous Epith Cells (0-4) /hpf Hyaline Casts (0-2) /lpf Urine Mucus (None) /hpf Urine HCG, Qual (Not Detectd) Coronavirus (PCR) Detected H (Not Detected) Heterophile Antibody (Negative) Group A Strep Rapid (Negative) - Radiology Data CT shows thickening of much of the colon, but correlating for colitis. Patchy bilateral infiltrates may represent developing pneumonia. Myocardial megaly. Hepatic lesion is less visualized on this exam and does appear to be smaller. (Chiquita Arana) Disposition Is patient prescribed a controlled substance at d/c from ED?: No Time of Disposition: 09:09 <Chiquita Arana - Last Filed: 04/04/20 09:03> <Deloris Echavarria - Last Filed: 04/05/20 01:58> Clinical Impression: Colitis, Infiltrate of lung present on computed tomography Disposition: HOME SELF-CARE Condition: Good Instructions (If sedation given, give patient instructions): Pneumonia (ED), Colitis (ED) Additional Instructions: Please use medication as discussed, alternate with tylenol and motrin Q6H. Take antibiotic as directed. Please follow up with family doctor if symptoms have not improved over the next two days. Please return to the emergency room if your symptoms increase or worsen or for any other concerns. Prescriptions: Metoclopramide [Reglan] 10 mg PO ACHS #12 tab Azithromycin [Zithromax Z-pack] 250 mg PO DIRECTED #6 tab Referrals: Darshan Lara III, MD [Primary Care Provider] - 1-2 days
[2020-04-04] MEDS ORDERED: SODIUM CHLORIDE 0.9% 1,000 ML IV SCH (07:00)
[2020-04-04 07:12] LABS: Basophils % (A) 1 %; Eosinophils % (A) 1 %; HCT 42.4 % (34.0-46.0); Lymphocytes # (A) 1.6 k/uL (1.0-4.8); Lymphocytes % (A) 39 %; MCH 26.4 pg (25.0-35.0); MCV 80.1 fL (80.0-100.0); Mean Platelet Volume 8.8; Monocytes # (A) 0.3 k/uL (0-1.0); Monocytes % (A) 7 %; Neutrophils # (A) 2.1 k/uL (1.3-7.7); Neutrophils % (A) 52 %; Platelet Count 170 k/uL (150-450); RBC 5.29 m/uL (3.80-5.40); RDW 14.4 % (11.5-15.5)
[2020-04-04 07:20] LABS: Appearance,Urine Cloudy (Clear); Bilirubin,Urine Negative (Negative); Blood,Urine Moderate (Negative); Color,Urine Yellow; Glucose,Urine (UA) Negative (Negative); Hyaline Casts,Urine 1 /lpf (0-2); Ketones,Urine Negative (Negative); Leukocyte Esterase,Urine Negative (Negative); Mucus,Urine Moderate /hpf; Nitrite,Urine Negative (Negative); PH, Urine 5.5 (5.0-8.0); Protein,Urine Trace (Negative); RBC,Urine 22 /hpf (0-5); Specific Gravity,Urine 1.026 (1.001-1.035); Squamous Epithelial Cell,Urine 5 /hpf (0-4); Urobilinogen,Urine <2.0 mg/dL (<2.0); WBC,Urine 9 /hpf (0-5)
[2020-04-04 07:36] LABS: ALT 43 U/L (4-34); AST 40 U/L (14-36); African American GFR (CKD) >90 (>60 ml/min/1.73 sqM); Alkaline Phosphatase 78 U/L (38-126); Amylase 62 U/L (30-110); Anion Gap 10 mmol/L; Blood Urea Nitrogen 13 mg/dL (7-17); Calcium 9.1 mg/dL (8.4-10.2); Carbon Dioxide 24 mmol/L (22-30); Chloride 105 mmol/L (98-107); Glucose 128 mg/dL (74-99); Non-African American GFR(CKD) >90 (>60 ml/min/1.73 sqM); Potassium 3.5 mmol/L (3.5-5.1); Sodium 139 mmol/L (137-145); Total Bilirubin 0.3 mg/dL (0.2-1.3); Total Protein 6.8 g/dL (6.3-8.2)
--- NOTE | 2020-04-04 08:36 | CT ---
EXAMINATION TYPE: CT abdomen pelvis wo con DATE OF EXAM: 04/04/2020 COMPARISON: Previous study dated 11/29/2018 HISTORY: Right flank pain, N/V/D for [address] DLP: 808.6 mGycm Automated exposure control for dose reduction was used. FINDINGS: There has developed the heart is mildly prominent. Within the abdomen, the gallbladder is been removed. The spleen is normal. Previously described hepat ic lesion is not as well-seen on today's examination. Some speckled calcification outlines dislocatio n but is not accurately measurable on this examination. It does appear somewhat smaller. No other foc al hepatic lesion is seen. Both adrenal glands are normal. There is no evidence of nephrolithiasis or hydronephrosis. The pancreas is normal. There is no significant retroperitoneal, iliac or inguinal adenopathy. The uterus and ovaries are normal. The bladder is not distended. There is collapse of the left side of the colon in the transverse colon. There is also some thickenin g of the distal ascending colon. There are surgical clips at the level of the cecum and the appendix is been removed. Small bowel loops are normal. There is no free fluid and no free air. IMPRESSION: 1. THICKENING OF MUCH OF THE COLON. PLEASE CORRELATE FOR COLITIS. 2. PATCHY BILATERAL INFILTRATES. THIS MAY REPRESENT DEVELOPING PNEUMONIA. 3. MILD CARDIOMEGALY. 4. HEPATIC LESION LESS WELL VISUALIZED ON TODAY'S EXAMINATION DOES APPEAR TO BE SOMEWHAT SMALLER.
[2020-04-04] MEDS ORDERED: AZITHROMYCIN 500 MG TAB PO STA (09:02)
[2020-04-04] MEDS ORDERED: ONDANSETRON 4 MG ODT STARTER PACK 2 TAB BTL PO STA (09:08)
[2020-04-04 09:29] VITALS: BP 116/72; PULSE 69; TEMP 98.2
== END 2020-04-04 09:26 | disposition home or self-care (01) ==
LOC: EC 06:20
DX: K52.9 Noninfective gastroenteritis and colitis, unspecified (principal); R91.8 Other nonspecific abnormal finding of lung field; Z90.89 Acquired absence of other organs; Z90.49 Acquired absence of other specified parts of digestive tract; Z79.51 Long term (current) use of inhaled steroids; Z88.8 Allergy status to other drugs, medicaments and biological substances
CPT/HCPCS: 99284; 96374; 96375; 96361 ×2; 36415; 80053; 82150; 83690; 85025; 86308; 81001; 81025; 87081; 87430; 74176; U0003; J2405; J1885; S0119

== ENCOUNTER → 2020-04-14 | Outpatient (CLI) | payer BC | END | disposition home or self-care (01) | LOC: LABWHC1 11:30 | PROVIDERS: ATTEND Nurse Practitioner Family | DX: Z11.59 Encounter for screening for other viral diseases (principal) ==

== ENCOUNTER → 2020-11-16 | Outpatient (CLI) | payer BC ==
[2020-11-17 01:38] LABS: Estradiol 66.2 pg/mL; Follicle Stimulating Hormone 4.5 mIU/mL; Luteinizing Hormone 1.3 mIU/mL
[2020-11-17 04:46] LABS: Progesterone 10.2 ng/mL
== END | disposition home or self-care (01) ==
LOC: LABWHC1 14:20
PROVIDERS: ATTEND Obstetrics & Gynecology
DX: N93.8 Other specified abnormal uterine and vaginal bleeding (principal); Z13.29 Encounter for screening for other suspected endocrine disorder
CPT/HCPCS: 36415; 82670; 83001; 83002; 84144; 84146; 84439; 84443; 84479

== ENCOUNTER → 2021-05-12 | Outpatient (CLI) | payer BC ==
[2021-05-13 01:11] LABS: African American GFR (CKD) 125.6 (60.0-200.0); Albumin 4.8 g/dL (3.80-4.90); Albumin/Globulin Ratio 1.85 (1.60-3.17); Anion Gap 12.4 mmol/L (4.00-12.00); Calcium 10.2 mg/dL (8.7-10.3); Carbon Dioxide 24.6 mmol/L (21.6-31.8); Chol/HDL Ratio 3.13; Globulin 2.6 g/dL (1.6-3.3); LDL Cholesterol,Calculated 129.6 mg/dL (0.0-131.0); Non-African American GFR(CKD) 108.4 (60.0-200.0); Potassium 3.6 mmol/L (3.5-5.5); Total Bilirubin 0.4 mg/dL (0.2-1.2); Total Protein 7.4 g/dL (6.2-8.2); VLDL Calculation 13.4 mg/dL (5.00-40.00)
== END | disposition home or self-care (01) ==
LOC: LABWHC1 11:58
PROVIDERS: ATTEND Nurse Practitioner Family
DX: Z13.220 Encounter for screening for lipoid disorders (principal); Z13.29 Encounter for screening for other suspected endocrine disorder; I10 Essential (primary) hypertension
CPT/HCPCS: 36415; 80053; 80061; 84443

== ENCOUNTER 2021-05-20 06:22 | Day surgery (SDC) | payer BC ==
[2021-05-18 09:46] VITALS: BMI 30.7
--- NOTE | 2021-05-19 16:07 | P.HPOB ---
History of Present Illness H&P Date: 05/19/21 Chief Complaint: Menorrhagia Suellen is a 41-year-old female with history of heavy vaginal bleeding. Symptoms have been present for an extended timeframe and she is unable to function well all she is bleeding. Unfortunately due to liver disease cannot take control pills and progestin IUD in the past has been poorly tolerated. She is also not a good candidate for Lysteda she is interested in a more permanent procedure to correct the bleeding. She is scheduled for a D&C with hysteroscopy and laparoscopic tubal occlusion with Filshie clips. Risks/benefits/alternatives to this procedure were reviewed with patient in detail and all questions were answered for her prior to proceeding to the operative room. As a tube ligation be permanent. She is aware that there is risks of perforation, bleeding, infection potential pain potential need further surgeries. Past Medical History Past Medical History: No Reported History, Hypertension Additional Past Medical History / Comment(s): eosinophilic esophagitis, PREVIOUS TROUBLE SWALLOWING, hepatic focal nodular hyperplasia History of Any Multi-Drug Resistant Organisms: None Reported Past Surgical History: Appendectomy, Cholecystectomy Additional Past Surgical History / Comment(s): liver embolization X2 at [facility] , sinus surgery Past Anesthesia/Blood Transfusion Reactions: Postoperative Nausea & Vomiting (PONV) Smoking Status: Never smoker - Past Family History Father Family Medical History: Neurologic Disorder Additional Family Medical History / Comment(s): Multiple Sclerosis, alcoholism Medications and Allergies Home Medications Medication Instructions Recorded Confirmed Type Fluticasone Propionate [Flovent 2 puff INHALATION RT-DAILY 11/29/18 05/18/21 History Hfa 220 mcg] Multivitamins, Thera [Multivitamin 1 tab PO DAILY 11/29/18 05/18/21 History (formulary)] Pantoprazole Sodium [Protonix] 20 mg PO DAILY 11/29/18 05/18/21 History FLUoxetine HCL [PROzac] 10 mg PO DAILY 05/18/21 05/18/21 History amLODIPine [Norvasc] 5 mg PO DAILY 05/18/21 05/18/21 History hydroCHLOROthiazide 50 mg PO DAILY 05/18/21 05/18/21 History Allergies Allergy/AdvReac Type Severity Reaction Status Date / Time venlafaxine HCl Allergy Rapid Verified 05/18/21 09:03 [From Effexor] Heart Rate Exam Osteopathic Statement: *. No significant issues noted on an osteopathic structural exam other than those noted in the History and Physical/Consult. - OBG Physical Exam Breast: both: normal (no masses) Abdomen: bowel sounds normal, no diffuse tenderness, no bruit present, no guarding noted, no hepatomegaly, no splenomegaly, no mass Vulva: both: normal Vagina: normal moisture, no discharge Cervix: no lesion, no discharge Uterus: normal size, normal contour Adnexa: both: normal Anus/Rectum: normal perianal skin, no rectal mass, no hemorrhoids, heme negative
[~2021-05-20 06:22] MED LIST: DEXAMETHASONE SOD PHOSPHATE 4 MG/ML 1 ML VIAL IV ONE; LACTATED RINGERS 1,000 ML IV SCH; ONDANSETRON 4 MG/2 ML VIAL IVP ONE; Pre Op ABX Message 1 EACH MISC MISCELLANE ONE
[2021-05-20] MEDS ORDERED: LACTATED RINGERS 1,000 ML IV ONE ×2 (06:48→09:17)
[2021-05-20] MEDS ORDERED: SCOPOLAMINE 1.5MG/72HR PATCH TRANSDERM ONE (06:49)
[2021-05-20] MEDS ORDERED: fentaNYL (PF) 50 MCG/ML 2 ML AMP ONE (07:23)
[2021-05-20] MEDS ORDERED: GLYCOPYRROLATE 0.2 MG/ML 2 ML VIAL ONE (07:23)
[2021-05-20] MEDS ORDERED: MIDAZOLAM 2 MG/2 ML VIAL ONE (07:23)
[2021-05-20] MEDS ORDERED: ROCURONIUM 10 MG/ML (5 ML VIAL) IV ONE (07:23)
[2021-05-20] MEDS ORDERED: SUCCINYLCHOLINE CHLORIDE 100 MG/5 ML SYR IV ONE (07:23)
[2021-05-20] MEDS ORDERED: LIDOCAINE 1% INJ 10MG/ML (20 ML MDV) ONE (07:23)
[2021-05-20] MEDS ORDERED: PROPOFOL 10 MG/ML 20 ML VIAL IV ONE (07:23)
[2021-05-20] MEDS ORDERED: NEOSTIGMINE 1 MG/ML 10 ML VIAL ONE (07:23)
[2021-05-20] MEDS ORDERED: KETOROLAC 15 MG/ML 1 ML VIAL ONE (07:23)
[2021-05-20] MEDS ORDERED: BUPIVACAINE (PF) 0.25% 30 ML VIAL SQ ONE (07:49)
--- NOTE | 2021-05-20 08:16 | P.OP ---
Date of Procedure: 05/20/21 Preoperative Diagnosis: Menorrhagia and family planning Postoperative Diagnosis: Same Procedure(s) Performed: D&C with hysteroscopy and NovaSure with laparoscopic tubal ligation Filshie clips Anesthesia: SUDARSHAN Surgeon: Ravindra Akins Estimated Blood Loss (ml): 10 IV fluids (ml): 250 Urine output (ml): 40 Pathology: other (Uterine curettings) Condition: stable Disposition: same day Operative Findings: Pathology pending Description of Procedure: Patient was taken to the operating suite where a general anesthetic was found be adequate. She was prepped and draped in normal sterile fashion and placed in the dorsal lithotomy position. Initially a speculum was inserted in the vagina and anterior lip cervix identified and grasped with an Allis clamp. It was then sounded to 8 cm and a uterine manipulator was inserted without difficulty. These incidents were then removed and a red rubber cath was used and bladder. Urine. Gloves were then changed and attention was turned to the abdominal portion procedure where 2 mL of quarter percent Marcaine was injected periumbilically. Through this injected anesthetic a 5 mm skin incision was made and through this incision, under direct visualization with an optical trocar and sleeve the camera was inserted. Once peritoneal placement was assured gas was allowed to fully insufflate the abdomen and patient's placement steep Trendelenburg position. A second port and sleeve were then inserted in the midline 3 cm above the pubic symphysis under direct visualization. Once this was placed uterus was elevated and fallopian tubes identified. First the right fallopian tube than the left fallopian tube had a Filshie clip applied 2 cm from uterine cornu. No bleeding is noted in the mesosalpinx therefore incidents removed and gas allowed to expel from the abdomen. 5 deep breaths were provided during this process. Once ports were removed 4-0 Vicryl was used to close incision subcuticular E and the remaining Marcaine was injected around the incisions. Attention was then again returned to the vaginal portion procedure where the uterine manipulator was removed and a heavy speculum was inserted. Into lip of the cervix was then identified with a Allis clamp and was fully dilated. Camera was inserted minimal pathology was noted therefore camera was removed and sharp curettings of endometrium were obtained. Once this tissue was collected it was placed on Telfa and sent to pathology for evaluation. Once completed NovaSure system was brought in tested with a length of 4 and a width of 3.4 and once it passes patency test it was enabled and activated. The burn last night 1 seconds. Conclusion the burn system was removed and camera was reinserted with good burn noted. All instruments were then removed. Sponge, lap, needle counts were all correct 2. Patient was then taken to the recovery room in stable and satisfactory condition. Plan - Discharge Summary Discharge Rx Participant: Yes New Discharge Prescriptions: New Ibuprofen [Motrin] 600 mg PO Q6HR PRN #30 tab PRN Reason: Pain Acetaminophen-Codeine 300-30mg [Tylenol #3] 1 tab PO Q4H PRN #30 tablet PRN Reason: Pain No Action Pantoprazole Sodium [Protonix] 20 mg PO DAILY Multivitamins, Thera [Multivitamin (formulary)] 1 tab PO DAILY Fluticasone Propionate [Flovent Hfa 220 mcg] 2 puff INHALATION RT-DAILY amLODIPine [Norvasc] 5 mg PO DAILY FLUoxetine HCL [PROzac] 10 mg PO DAILY hydroCHLOROthiazide 50 mg PO DAILY Discharge Medication List Fluticasone Propionate [Flovent Hfa 220 mcg] 2 puff INHALATION RT-DAILY 11/29/18 [History] Multivitamins, Thera [Multivitamin (formulary)] 1 tab PO DAILY 11/29/18 [History] Pantoprazole Sodium [Protonix] 20 mg PO DAILY 11/29/18 [History] FLUoxetine HCL [PROzac] 10 mg PO DAILY 05/18/21 [History] amLODIPine [Norvasc] 5 mg PO DAILY 05/18/21 [History] hydroCHLOROthiazide 50 mg PO DAILY 05/18/21 [History] Acetaminophen-Codeine 300-30mg [Tylenol #3] 1 tab PO Q4H PRN #30 tablet 05/20/21 [Rx] Ibuprofen [Motrin] 600 mg PO Q6HR PRN #30 tab 05/20/21 [Rx] Follow up Appointment(s)/Referral(s): Ravindra Akins DO [Doctor of Osteopathic Medicine] - 1 Week Patient Instructions/Handouts: *Surgery [facility] - Scopalamine Patch Instructions Discharge Disposition: HOME SELF-CARE
[2021-05-20] MEDS: HYDROmorphone 0.5 MG/0.5 ML SYRINGE IVP PRN ×4 (08:22→09:08)
[2021-05-20 08:24] VITALS: TEMP 97.2
[2021-05-20] MEDS ORDERED: ONDANSETRON 4 MG/2 ML VIAL ONE (11:05)
[2021-05-20] MEDS ORDERED: Acetaminophen-Codeine 300-30mg TAB ONE (11:05)
[2021-05-20] MEDS ORDERED: Acetaminophen-Codeine 300-30mg TAB PO ONE (11:18)
[2021-05-20 11:58] VITALS: BP 110/75; PULSE 65; RESP 16
== END 2021-05-20 12:33 | disposition home or self-care (01) ==
LOC: OR 06:22
PROVIDERS: ATTEND Obstetrics & Gynecology
DX: N92.0 Excessive and frequent menstruation with regular cycle (principal); N84.0 Polyp of corpus uteri; I10 Essential (primary) hypertension
CPT/HCPCS: 81025; 88305; 58558; 58671; J2250; J1100; J2710; J2405; J2001; J3010; J1885; J0330; J2704; J1170

== ENCOUNTER → 2021-06-07 | Outpatient (CLI) | payer BC ==
--- NOTE | 2021-06-08 11:51 | P.STRESS ---
- Stress Test Note Stress Test Results/Findings: Exam Performed: EH stress test Exam Date: 06/07/21 Reason for Exam: HYPERTENSION Height: 5 ft 5 in Weight: 84.1 kg Protocol: KASEY Stage: 3 Duration of Exercise: 8:04 Resting Heart Rate: 74 Resting Blood Pressure: 134/89 Maximum Achieved Heart Rate: 171 Maximum Achieved Blood Pressure: 169/82 85% PMHR: 153 100% PMHR: 180 METS: 9.7 Technologist Comment: Stress Test Results/Findings: Baseline 12-lead EKG normal Patient exercised on a Kasey protocol for 8 minutes She complained of a pounding heartbeat in her area Normal blood pressure response No evidence for ischemia No arrhythmias Impression No ECG evidence for ischemia No arrhythmias Average exercise capacity
== END | disposition home or self-care (01) ==
LOC: RADNMMAIN 08:38
PROVIDERS: ATTEND Family Medicine
DX: I10 Essential (primary) hypertension (principal)
CPT/HCPCS: 93017